=== PATIENT | male | born 1960 | race Caucasian/White ===

== ENCOUNTER 2016-12-18 07:54 | Day surgery (SDC) | payer OTHER ==
[~2016-12-18 07:54] MED LIST: FENTANYL 250 MCG/5 ML AMP IV PRN; IV START KIT ONE; LACTATED RINGERS 1,000 ML IV SCH; MIDAZOLAM HCL 5 MG/5 ML VIAL IV PRN
--- NOTE | 2016-12-20 08:43 | SURGPATH ---
[facility] [address] [place] [id number] Patient Name: RILEY HODGE MR#: [id number] : 1960 Gender: M Specimen #: [id number] Collected: 12/18/2016 Received: 12/19/2016 Reported: 12/20/2016 Submitting Phys: NOEMI SILVER Copy To Phys: [facility] Clinical History / Pre-Operative Diagnosis: SURVEILLANCE Specimen Source / Surgical Procedure Performed: DISTAL TRANSVERSE COLON POLYP Interpretation: DISTAL TRANSVERSE COLON, POLYP, BIOPSY: - HYPERPLASTIC POLYP Electronically Signed Out Carly Shaw M.D. Gross Description: The specimen is received in a formalin filled container labeled with the patient's name and "distal transverse colon polyp". Two sandhu biopsies are 0.4 and 0.5 cm. Totally embedded in one cassette. Cruz Hammond PGerardo Microscopic Description: Sections show fragments of hyperplastic colonic mucosa without dysplasia. 1: [id number] K63.5
== END 2016-12-18 09:36 | disposition home or self-care (01) ==
LOC: SDC 07:54
PROVIDERS: ATTEND Internal Medicine Gastroenterology
PROC: 0DBL8ZX Excision of Transverse Colon, Via Natural or Artificial Opening Endoscopic, Diagnostic (ICD-10-PCS; principal; 2016-12-18)
DX: Z12.11 Encounter for screening for malignant neoplasm of colon (principal); K63.5 Polyp of colon; F41.9 Anxiety disorder, unspecified; E78.00 Pure hypercholesterolemia, unspecified; I10 Essential (primary) hypertension; E55.9 Vitamin D deficiency, unspecified; D12.3 Benign neoplasm of transverse colon; K57.30 Diverticulosis of large intestine without perforation or abscess without bleeding
CPT/HCPCS: 45380; J3010; J2250; J7120